=== PATIENT | male | born 1955 | race Caucasian/White ===

== ENCOUNTER → 2016-11-06 | Outpatient (CLI) | payer MEDICARE, OTHER ==
[2016-11-06 15:18] LABS: CH 30.3; HCT 49.6 % (39.0-53.0); HDW 2.36; HGB 16.6 gm/dL (13.0-17.5); MCH 30.8 pg (25.0-35.0); MCHC 33.5 g/dL (31.0-37.0); MCV 92.2 fL (80.0-100.0); Mean Platelet Volume 6.8; RBC 5.39 m/uL (4.30-5.90); RDW 13.5 % (11.5-15.5)
[2016-11-06 15:34] LABS: Anion Gap 14 mmol/L; Blood Urea Nitrogen 19 mg/dL (9-20); Carbon Dioxide 23 mmol/L (22-30); Chloride 106 mmol/L (98-107); Non-African American GFR(MDRD) >60 (>60 ml/min/1.73 sqM); Potassium 4.6 mmol/L (3.5-5.1); Sodium 143 mmol/L (137-145)
== END | disposition home or self-care (01) ==
LOC: LABPAT 14:04
PROVIDERS: ATTEND Internal Medicine Interventional Cardiology
DX: Z01.812 Encounter for preprocedural laboratory examination (principal); R07.89 Other chest pain
CPT/HCPCS: 36415; 80051; 82565; 84520; 85027

== ENCOUNTER 2016-11-07 07:05 | Day surgery (SDC) | payer MEDICARE, OTHER ==
[2016-11-06 10:46] VITALS: BMI 42.0
[~2016-11-07 07:05] MED LIST: ASPIRIN 325 MG TAB PO ONE; NITROGLYCERIN SL TABS 0.4 MG TAB SUBLINGUAL PRN; SODIUM CHLORIDE 0.9% 1,000 ML in EMPTY BAG 1 BAG IV ONE
[2016-11-07] MEDS ORDERED: LIDOCAINE 2% INJ 20 MG/ML (20 ML MDV) ONE (07:22)
[2016-11-07] MEDS: ALPRAZolam 0.25 MG TAB PO PRN (07:27)
[2016-11-07 07:34] LABS: Basophils # (A) 0.1 k/uL (0-0.2); Basophils % (A) 1 %; CH 31.7; CHCM 33.8; Eosinophils # (A) 0.2 k/uL (0-0.7); Eosinophils % (A) 2 %; HCT 50.5 % (39.0-53.0); HDW 2.34; HGB 16.3 gm/dL (13.0-17.5); Luc # (Auto) 0.26; Luc % (Auto) 2; Lymphocytes # (A) 2.3 k/uL (1.0-4.8); Lymphocytes % (A) 20 %; MCH 30.5 pg (25.0-35.0); MCHC 32.3 g/dL (31.0-37.0); MCV 94.4 fL (80.0-100.0); Mean Platelet Volume 7.4; Monocytes # (A) 0.7 k/uL (0-1.0); Monocytes % (A) 6 %; Neutrophils # (A) 7.7 k/uL (1.3-7.7); Neutrophils % (A) 69 %; RBC 5.34 m/uL (4.30-5.90); RDW 14.8 % (11.5-15.5); WBC 11.2 k/uL (3.8-10.6); WBC (Perox) 10.81
[2016-11-07] MEDS ORDERED: diphenhydrAMINE 50 MG/ML 1 ML VIAL ONE ×2 (07:36→08:11)
[2016-11-07] MEDS ORDERED: diphenhydrAMINE 50 MG/ML 1 ML VIAL IVP ONE ×2 (07:40→08:12)
[2016-11-07] MEDS ORDERED: methylPREDNISolone SOD SUCCI 125 MG/2 ML VIAL IV STA (07:43)
[2016-11-07] MEDS ORDERED: methylPREDNISolone SOD SUCCI 125 MG/2 ML VIAL ONE (07:44)
[2016-11-07] MEDS ORDERED: MIDAZOLAM 2 MG/2 ML VIAL ONE (07:44)
[2016-11-07] MEDS ORDERED: methylPREDNISolone SOD SUCCI 125 MG/2 ML VIAL IVP ONE (07:57)
[2016-11-07] MEDS ORDERED: fentaNYL (PF) 50 MCG/ML 2 ML AMP ONE (08:07)
[2016-11-07] MEDS ORDERED: MIDAZOLAM 2 MG/2 ML VIAL IVP ONE (08:08)
[2016-11-07] MEDS ORDERED: fentaNYL (PF) 50 MCG/ML 2 ML AMP IVP ONE (08:09)
[2016-11-07] MEDS ORDERED: LIDOCAINE 2% INJ 20 MG/ML SQ ONE (08:12)
[2016-11-07] MEDS: VERAPAMIL SYRINGE (5 MG/10 ML) INTRAARTER ONE ×2 (08:13→09:00)
[2016-11-07] MEDS ORDERED: HEPARIN SODIUM 1,000 UN/ML (10ML VL) ONE (08:14)
[2016-11-07] MEDS ORDERED: HEPARIN SODIUM 1,000 UN/ML (10ML VL) IV ONE (08:17)
[2016-11-07] MEDS ORDERED: BIVALIRUDIN BOLUS 250 MG/50 ML IV ONE (08:32)
[2016-11-07] MEDS ORDERED: BIVALIRUDIN 250 MG in SODIUM CHLORIDE 0.9% 40 ML IV ONE (08:32)
[2016-11-07] MEDS ORDERED: NITROGLYCERIN 1000MCG/10ML SYRINGE INTRACORON ONE (08:50)
[2016-11-07] MEDS ORDERED: IOHEXOL 350 MG/ML 125ML BOTTLE INJ ONE (08:56)
[2016-11-07] MEDS ORDERED: PRASUGREL 10 MG TAB ONE (08:58)
[2016-11-07] MEDS ORDERED: PRASUGREL 10 MG TAB PO ONE (09:01)
[2016-11-07] MEDS ORDERED: MAG HYDROX/AL HYDROX/SIMETH 30 ML CUP PO PRN (09:16)
[2016-11-07] MEDS ORDERED: ZOLPIDEM 5 MG TAB PO PRN (09:16)
[2016-11-07] MEDS ORDERED: ATROPINE SULFATE 0.1 MG/ML 10ML SYRINGE IV PRN (09:16)
[2016-11-07] MEDS ORDERED: RX INFO: IV CONTRAST WAS GIVEN 1 EACH MISC MISCELLANE PRN (09:16)
[2016-11-07] MEDS ORDERED: NITROGLYCERIN SL TABS 0.4 MG TAB SUBLINGUAL PRN (09:16)
[2016-11-07] MEDS: NICOTINE 21MG/24HR PATCH TRANSDERM SCH (10:09)
[2016-11-07] MEDS: SODIUM CHLORIDE 0.9% 1,000 ML IV SCH (10:15)
--- NOTE | 2016-11-07 10:32 | CC ---
DATE OF SERVICE: 11/07/2016 PROCEDURE: Left heart catheterization, coronary angiography, and left ventriculography. PERFORMED BY: Dr. Amador López. CLINICAL INFORMATION: Mr. Mcgowan is a 61 year old morbidly obese patient with a history of sternal injury and a sternotomy. He also has chronic pain syndrome , hyperlipidemia, back discomfort, sleep apnea but does not wish to wear CPAP. I saw him because of an abnormal stress test with inferior wall reversible defect and also a question of hypokinesia. He was advised a right radial cath, brought in for the procedure electively. Risks, benefits, options and rationale were discussed at length. PROCEDURE NOTE: Under local anesthesia and strict aseptic precautions, a 6 [place]ar[place] introducer was placed in the right radial artery. Using an Ultima 1 catheter, I performed selective coronary angiography. After intervention procedure, I performed an LV gram using a pigtail catheter in KAY projection. Following coronary angiography, I proceeded with intervention in the same setting. CARDIAC CATHETERIZATION FINDINGS: The left ventricle end diastolic pressure was about 13 mmHg and there was no gradient across the aortic valve. CORONARY ANGIOGRAPHY FINDINGS: Right coronary artery is technically a dominant vessel, has about 30% lesion in the proximal portion, smooth, distally bifurcates into PDA and PLV and multiple branches. No significant disease. Only minor irregularities noted in the dominant RCA. Left main coronary artery: Short, patent, disease free vessel that bifurcates into LAD and circumflex. Left anterior descending coronary artery: Good caliber vessel extends along the anterior wall, gives off septal and good size diagonal branch, runs all the way to the apex and gives off several branches. The two diagonal branches are of fair caliber. No significant disease. LAD is free of significant disease. Septals have minor irregularities. LAD is a relatively disease free system. Left posterior circumflex coronary artery: Nondominant vessel gives off a left atrial circumflex proximally and a high obtuse marginal and then there is a groove branch and then the vessel continues down as an obtuse marginal branch. In the mid portion, there is an eccentric 80% stenosis best seen in the AP projection. This appears to be 80% mid circumflex lesion and this vessel supplies a fair amount of myocardium and is about 2.5 to 3.0 caliber vessel. LEFT VENTRICULOGRAM: This was performed after the intervention procedure and revealed left ventricle is of normal size with good systolic function with ejection fraction 60% without mitral regurgitation. No significant wall motion abnormality was noted. FINAL IMPRESSION: This patient has a right dominant system, mild irregularities in the RCA and LAD. Circumflex is nondominant, has a mid lesion of 80%. Ejection fraction 60% without mitral regurgitation. RECOMMENDATIONS: I am recommending intervention of the circumflex and proceeded to perform this in the same setting. MTDD
[2016-11-07] MEDS ORDERED: diphenhydrAMINE 25 MG CAP PO STA (10:37)
[2016-11-07] MEDS ORDERED: predniSONE 10 MG TAB PO STA (10:37)
--- NOTE | 2016-11-07 10:38 | PTCA ---
DATE OF SERVICE: 11/07/16 PROCEDURE: PTCA and stenting of mid circumflex coronary artery. PERFORMED BY: Dr. Amador López. CLINICAL INFORMATION: Mr. Mcgowan is a 61 year old morbidly obese patient with a history of sternal injury and a sternotomy. He also has chronic pain syndrome , hyperlipidemia, back discomfort, sleep apnea but does not wish to wear CPAP. I saw him because of an abnormal stress test with inferior wall reversible defect and also a question of hypokinesia. He was advised a right radial cath, brought in for the procedure electively. Risks, benefits, options and rationale were discussed at length. PROCEDURE NOTE: The existing 6 Vietnamese introducer in the right radial artery was used to perform the procedure. I tried to use a standard left and then switched over to a JL 3.5 caliber guide catheter. With this, I cannulated the left coronary artery. A BMW wire was used to cross the lesion. Predilation was performed using a 2.5 caliber 12 mm long Trek balloon. I then deployed a 3.0 caliber 12 mm long Xience stent at 13 atmospheres. The patient had mild chest discomfort. No significant EKG changes. Excellent angiographic result was achieved without complication. The results were discussed with the patient. There was no family available. He received 60 mg of Effient. He also received Angiomax bolus and drip as per protocol. There were no family or friends to talk to. The patient was sent to the room in stable condition. Results were discussed and images reviewed with him. The patient received moderate conscious sedation for a total duration of 55 minutes. He was treated with Fentanyl, Versed and Benadryl. There was a question of contrast allergy. He also received Solu-Medrol. Oxygen saturation was monitored closely. I expect the patient to be discharged tomorrow if he remains stable. [facility]ITALJonathan
[2016-11-07] MEDS: HYDROcodone/APAP 10-325MG 1 EACH TAB PO PRN ×2 (11:19→20:19)
[2016-11-07] MEDS: METOPROLOL TARTRATE 25 MG TAB PO SCH ×2 (11:26→20:07)
[2016-11-07] MEDS ORDERED: ERGOCALCIFEROL 50,000 UNIT CAP PO SCH (12:00)
[2016-11-07] MEDS ORDERED: METOPROLOL TARTRATE 25 MG TAB PO SCH (21:00)
[2016-11-07] MEDS ORDERED: ATORVASTATIN 40 MG TAB PO SCH (21:00)
[2016-11-07 22:47] VITALS: RESP 18
[2016-11-08] MEDS: ALPRAZolam 0.25 MG TAB PO PRN (02:22)
[2016-11-08] MEDS: SODIUM CHLORIDE 0.9% 1,000 ML IV SCH (05:43)
[2016-11-08 05:51] LABS: Basophils % (A) 0 %; CH 31.5; CHCM 33.5; Eosinophils # (A) 0.1 k/uL (0-0.7); Eosinophils % (A) 1 %; HCT 46.3 % (39.0-53.0); HGB 14.9 gm/dL (13.0-17.5); Luc # (Auto) 0.21; Luc % (Auto) 2; Lymphocytes # (A) 2.1 k/uL (1.0-4.8); Lymphocytes % (A) 16 %; MCH 30.6 pg (25.0-35.0); MCHC 32.3 g/dL (31.0-37.0); MCV 94.7 fL (80.0-100.0); Mean Platelet Volume 7.3; Monocytes # (A) 0.8 k/uL (0-1.0); Monocytes % (A) 7 %; Neutrophils # (A) 9.7 k/uL (1.3-7.7); Neutrophils % (A) 75 %; RBC 4.89 m/uL (4.30-5.90); RDW 14.5 % (11.5-15.5); WBC 12.8 k/uL (3.8-10.6); WBC (Perox) 12.69
[2016-11-08 06:02] LABS: Anion Gap 9 mmol/L; Blood Urea Nitrogen 16 mg/dL (9-20); Calcium 8.7 mg/dL (8.4-10.2); Carbon Dioxide 24 mmol/L (22-30); Chloride 108 mmol/L (98-107); Glucose 108 mg/dL (74-99); Non-African American GFR(MDRD) >60 (>60 ml/min/1.73 sqM); Potassium 4.2 mmol/L (3.5-5.1); Sodium 141 mmol/L (137-145)
[2016-11-08] MEDS: NICOTINE 21MG/24HR PATCH TRANSDERM SCH (07:54)
[2016-11-08] MEDS: METOPROLOL TARTRATE 25 MG TAB PO SCH (07:54)
[2016-11-08] MEDS: HYDROcodone/APAP 10-325MG 1 EACH TAB PO PRN (08:01)
[2016-11-08] MEDS ORDERED: ASPIRIN 81 MG CHEW PO SCH (09:00)
[2016-11-08] MEDS ORDERED: CLOPIDOGREL 75 MG TAB PO SCH (09:00)
[2016-11-08 09:46] VITALS: BP 144/85; PULSE 79; TEMP 97.4
--- NOTE | 2016-11-09 06:47 | DS ---
DATE OF ADMISSION: 11/07/2016 DATE OF DISCHARGE: 11/08/2016 DIAGNOSIS: 1. Unstable angina. 2. Hypercholesterolemia. PROCEDURES PERFORMED: 1. Left heart catheterization, coronary angiography and left ventriculography. 2. PTCA and stenting of mid circumflex coronary artery with a drug eluting stent. Mr. David Mcgowan was brought in electively for a cardiac cath and possible PCI because of abnormal stress test with inferior wall reversible defect. Rationale , risks, benefits and options were explained. Coronary angiography and PCI of circumflex were performed uneventfully. He tolerated the procedure well. The procedure was performed from the right radial approach. Postprocedure course was uneventful. His labs and EKGs were good. Blood pressure today is 136/70, pulse rate is 80 per minute. S1 and S2 heard normally. Lungs are clear. Abdomen and lower extremity exam is unchanged. Right radial cath site is clean and dry with a good pulse. Physical exam revealed no JVD or carotid bruit. S1 and S2 heard normally. Heart sounds heard distantly. Lungs are clear. Abdomen is soft, nontender. Lower extremities reveal normal pulses. No edema. Central nervous system is normal. Right radial cath site is clean and dry with a good pulse. All discharge instructions regarding activity, diet, medications were given. Patient will be discharged today and I will see him in the office next at 3:30 p.m. in [place] office. DARNELL
== END 2016-11-08 09:48 | disposition home or self-care (01) ==
LOC: CATHCVL 07:05 → 6SEL 08:58 → CATHCVL 11-08 09:48
PROVIDERS: ATTEND Internal Medicine Interventional Cardiology
DX: I25.110 Atherosclerotic heart disease of native coronary artery with unstable angina pectoris (principal); R94.39 Abnormal result of other cardiovascular function study; E78.5 Hyperlipidemia, unspecified; Z82.49 Family history of ischemic heart disease and other diseases of the circulatory system; F17.210 Nicotine dependence, cigarettes, uncomplicated; G89.4 Chronic pain syndrome; G47.33 Obstructive sleep apnea (adult) (pediatric); E66.01 Morbid (severe) obesity due to excess calories; Z79.82 Long term (current) use of aspirin; Z79.899 Other long term (current) drug therapy
CPT/HCPCS: 93458; 80048; 85025 ×2; 99152; 99153 ×2; C9600; C1769; C1887 ×2; C1725; C1874; C1894; S4990 ×2; J2001; J2250; J1200; J2930; J3010; J1644; J0583; Q9967

== ENCOUNTER → 2018-02-26 | Outpatient (CLI) | payer MEDICARE, OTHER | END | disposition home or self-care (01) | LOC: RADMRIMAIN 10:41 | PROVIDERS: ATTEND Internal Medicine | DX: Z53.9 Procedure and treatment not carried out, unspecified reason (principal) ==

== ENCOUNTER → 2019-10-27 | Outpatient (CLI) | payer MEDICARE, OTHER ==
[2019-10-27 11:12] LABS: HCT 48.8 % (39.0-53.0); MCH 30.5 pg (25.0-35.0); MCHC 32.8 g/dL (31.0-37.0); MCV 92.8 fL (80.0-100.0); Mean Platelet Volume 7.7; Platelet Count 284 k/uL (150-450); RBC 5.26 m/uL (4.30-5.90); RDW 13.1 % (11.5-15.5); WBC 8.3 k/uL (3.8-10.6)
[2019-10-27 16:29] LABS: Albumin 4.3 g/dL (3.80-4.90); Albumin/Globulin Ratio 1.79 (1.60-3.17); Bilirubin, Conjugated 0.3 mg/dL (0.20-0.40); Bilirubin,Unconjugated 0.5 mg/dL; Globulin 2.4 g/dL (1.6-3.3); Total Bilirubin 0.8 mg/dL (0.3-1.2); Total Protein 6.7 g/dL (6.2-8.2)
[2019-10-27 17:09] LABS: INR 0.96 (0.90-1.11); Prothrombin Time 10.3 sec (9.9-11.9)
== END | disposition home or self-care (01) ==
LOC: LABWHC1 09:12
PROVIDERS: ATTEND Physician Assistant
DX: R74.8 Abnormal levels of other serum enzymes (principal); Z86.19 Personal history of other infectious and parasitic diseases
CPT/HCPCS: 36415; 80076; 85027; 85610; 87522

== ENCOUNTER → 2024-01-08 | Outpatient (CLI) | payer MEDICARE, OTHER ==
--- NOTE | 2024-01-08 14:56 | CT ---
EXAMINATION TYPE: CT chest wo con CT DLP: 740 mGycm, Automated exposure control for dose reduction was used. DATE OF EXAM: 01/08/2024 2:08 PM COMPARISON: None available CLINICAL INDICATION:Male, 68 years old with history of R91.1 PULM NOD; PHH, Pulmonary nodule TECHNIQUE: Multiple axial images were obtained through the chest without IV contrast. Lack of IV or o ral contrast limits evaluation of solid and hollow organ viscera. . Coronal and sagittal reformats re viewed. FINDINGS: LUNGS/ PLEURA: No pleural effusion, pneumothorax, or focal consolidation. Right upper lobe calcified granuloma. Right upper lobe solid 2.3 cm pulmonary nodule (series 4, image 19). Demonstrates some per ipheral calcification with some internal fat density. Additional punctate right lower lobe calcified granuloma. Minimal centrilobular emphysematous changes. AIRWAY: Patent and unremarkable.. HEART: Size within normal limits. No pericardial effusion. Mild coronary artery calcifications. MEDIASTINUM: No gross evidence of adenopathy. Few mediastinal and right hilar calcified lymph nodes. VASCULATURE: No aortic aneurysm. Mild atherosclerotic calcification of the aorta and its branches. MUSCULOSKELETAL: No acute osseous abnormalities. Median sternotomy wires. Left-sided healed rib fract ures. SOFT TISSUES/LYMPH NODES: Minimal bilateral gynecomastia. LOWER NECK: No significant findings. UPPER ABDOMEN: Few calcified granulomas within the spleen. Liver is diffusely hypoattenuating consist ent with fatty infiltration. IMPRESSION: 1. Right upper lobe 2.3 cm pulmonary nodule with peripheral calcification and internal fat density. F avored to represent a benign hamartoma. Correlation with prior imaging is recommended to assess for s tability. Otherwise consider follow-up CT chest in one year. 2. Sequelae of prior granulomatous disease. 3. Hepatic steatosis. [facility], , 01/08/2024 2:28 PM
== END | disposition home or self-care (01) ==
LOC: RADCTMAIN 13:44
PROVIDERS: ATTEND Internal Medicine
CPT/HCPCS: 71250